=== PATIENT | male | born 1960 | race African-American/Black ===

== ENCOUNTER 2024-07-19 10:26 | Emergency (ER) | payer OTHER ==
[2024-07-19 11:02] LABS: #Basophils 0.04 10x3/uL (0.0-0.2); #Eosinophils 0.01 10x3/uL (0.0-0.5); #Monocytes 1.66 10x3/uL (0.0-1.1); #Neutrophils 12.04 10x3/uL (1.5-8.4); %Basophils 0.2 % (0.0-2.0); %Eosinophils 0.1 % (0.0-6.0); %Lymphocytes 16.3 % (18.0-47.0); %Monocytes 10.1 % (0.0-10.0); %Neutrophils 72.9 % (40.0-75.0); Hematocrit 43.7 % (38.8-50.0); Hemoglobin 15.2 g/dL (13.5-17.5); Mean Corpuscular HGB CONC 34.8 g/dL (32.0-36.0); Mean Corpuscular Hemoglobin 27.9 pg (27.0-33.0); Mean Corpuscular Volume 80.2 fL (81.2-95.1); Mean Platelet Volume 10.8 fL (7.4-10.4); Platelet Count 184 10x3/uL (150-450); RBC Distribution Width 17.1 % (11.5-14.5); Red Blood Cell (RBC) Count 5.45 10x6/uL (4.32-5.72); White Blood Cell (WBC) Count 16.5 10x3/uL (3.5-10.5)
[2024-07-19 11:14] LABS: D-Dimer Test 0.55 mcg/mL (0.19-0.50); INR-International Normal Ratio 1.4; PTT 31.3 sec (22.0-33.0); Prothrombin Time 14.4 sec (9.5-12.1)
[2024-07-19 11:22] LABS: ALT (SGPT) 13 U/L (8-55); AST (SGOT) 31 U/L (5-34); Albumin 4.1 g/dL (3.4-4.8); Alkaline Phosphatase 136 U/L (40-110); Anion Gap 20 mmol/L (10-20); BUN (Urea Nitrogen) 19 mg/dL (8.4-25.7); Bilirubin, Total 1.5 mg/dL (0.2-1.2); Calc. Creatinine Clearance 0 mL/min (70-130); Calcium 9.8 mg/dL (7.8-10.44); Carbon Dioxide 20 mmol/L (23-31); Chloride 97 mmol/L (98-107); Estimated GFR 64; Globulin 4.3 g/dL (2.4-3.5); Glucose 118 mg/dL (80-115); Potassium 4.8 mmol/L (3.5-5.1); Protein, Total 8.4 g/dL (5.8-8.1); Sodium 132 mmol/L (136-145)
[2024-07-19] MEDS ORDERED: Morphine 4 MG/ML VIAL ONE (12:35)
[2024-07-19] MEDS ORDERED: Ondansetron PF 4 MG/2 ML Vial ONE (12:35)
[2024-07-19 12:46] LABS: Troponin I Less than 0.010 ng/mL (< 0.028)
[2024-07-19] MEDS ORDERED: Iopamidol 370 76% 100 ML VIAL ONE (13:24)
== END 2024-07-19 14:34 ==
LOC: EEVIPCON 10:26 → CSHERS 10:26
DX: R07.9 Chest pain, unspecified (principal); I11.0 Hypertensive heart disease with heart failure; I50.9 Heart failure, unspecified; Z75.3 Unavailability and inaccessibility of health-care facilities
CPT/HCPCS: 36415; 71045; 71275; 80053; 83880; 84484; 85025; 85379; 85610; 85730; 93005; 93010; 96374; 96375; J2272; J2405; Q9967

== ENCOUNTER 2024-07-22 11:25 | Emergency (ER) | payer OTHER ==
[2024-07-22 12:19] LABS: #Basophils 0.05 10x3/uL (0.0-0.2); #Eosinophils 0.07 10x3/uL (0.0-0.5); #Neutrophils 6.36 10x3/uL (1.5-8.4); %Basophils 0.5 % (0.0-2.0); %Eosinophils 0.6 % (0.0-6.0); %Lymphocytes 24.5 % (18.0-47.0); %Monocytes 14.8 % (0.0-10.0); Hematocrit 45.3 % (38.8-50.0); Hemoglobin 15.9 g/dL (13.5-17.5); Mean Corpuscular HGB CONC 35.1 g/dL (32.0-36.0); Mean Corpuscular Hemoglobin 28.1 pg (27.0-33.0); Mean Corpuscular Volume 80.2 fL (81.2-95.1); Mean Platelet Volume 11.3 fL (7.4-10.4); Platelet Count 172 10x3/uL (150-450); RBC Distribution Width 16.5 % (11.5-14.5); Red Blood Cell (RBC) Count 5.65 10x6/uL (4.32-5.72); White Blood Cell (WBC) Count 10.8 10x3/uL (3.5-10.5)
[2024-07-22 12:23] LABS: ALT (SGPT) 18 U/L (8-55); AST (SGOT) 26 U/L (5-34); Albumin 3.7 g/dL (3.4-4.8); Alkaline Phosphatase 113 U/L (40-110); Anion Gap 16 mmol/L (10-20); BUN (Urea Nitrogen) 36 mg/dL (8.4-25.7); Bilirubin, Total 1.7 mg/dL (0.2-1.2); Calc. Creatinine Clearance 0 mL/min (70-130); Calcium 9.1 mg/dL (7.8-10.44); Carbon Dioxide 19 mmol/L (23-31); Chloride 100 mmol/L (98-107); Estimated GFR 33; Globulin 4.2 g/dL (2.4-3.5); Glucose 108 mg/dL (80-115); Magnesium 2.5 mg/dL (1.6-2.6); Potassium 3.2 mmol/L (3.5-5.1); Protein, Total 7.9 g/dL (5.8-8.1); Sodium 132 mmol/L (136-145)
[2024-07-22 12:34] LABS: Troponin I 0.018 ng/mL (< 0.028)
[2024-07-22] MEDS ORDERED: Potassium Chloride 20 MEQ TAB ONE (12:52)
[2024-07-22 14:27] LABS: Bilirubin Neg (Negative); Blood, Urine 25 (Negative); Clarity Clear (Clear); Glucose, Urine (Dipstick) Normal (Negative); Ketone, Urine Negative (Negative); Leukocyte Negative (Negative); Nitrite Negative (Negative); Protein, Urine (Dipstick) 30 mg/dl (Neg-Trace)
[2024-07-22 16:29] LABS: Bacteria/HPF Rare-Few HPF (None Seen); CAUTI Indications for Culture Alt mental st,lethar; Mucous/LPF 1+ LPF (<2+); RBC/HPF 0-3 HPF (0-3); Squamous Epithelial 0-3 HPF (0-3); WBC/HPF 0-3 HPF (0-3)
[2024-07-22 16:30] LABS: Urine Culture Reflex No No
== END 2024-07-23 01:48 | disposition short-term general hospital (02) ==
LOC: EEVIPCON 11:25 → CSHERS 11:25
DX: R55 Syncope and collapse (principal); E87.6 Hypokalemia; N17.9 Acute kidney failure, unspecified
CPT/HCPCS: 71045; 80053; 81001; 83735; 83880; 84484; 85025; 93005